=== PATIENT | male | born 1970 | race Caucasian/White ===

== ENCOUNTER 2022-11-08 08:34 | Outpatient (CLI) | payer MEDICARE, OTHER, SELFPAY ==
--- NOTE | 2022-11-08 09:10 | W.ANESCHARGE ---
Anesthesia Charges Start Date/Time Anesthesia Start Date: 11/08/22 Anesthesia Start Time: 09:35 Stop Date/Time Anesthesia Stop Date: 11/08/22 Anesthesia Stop Time: 10:05
--- NOTE | 2022-11-08 10:09 | W.ANESCHARGE ---
Anesthesia Charges Start Date/Time Anesthesia Start Date: 11/08/22 Anesthesia Start Time: 09:35 Stop Date/Time Anesthesia Stop Date: 11/08/22 Anesthesia Stop Time: 10:05
== END 2022-11-08 08:35 | disposition home or self-care (01) ==
PROVIDERS: Visit Provider Surgery
DX: R93.3 Abnormal findings on diagnostic imaging of other parts of digestive tract (principal); K57.32 Diverticulitis of large intestine without perforation or abscess without bleeding; K57.30 Diverticulosis of large intestine without perforation or abscess without bleeding
CPT/HCPCS: 45378; 812; J2704